=== PATIENT | male | born 1990 | race Two or more races ===

== ENCOUNTER 2019-01-26 12:08 | Emergency (ER) | payer SELFPAY ==
[~2019-01-26] VITALS: Ht 162.6 cm; Wt 56.7 kg
[2019-01-26 12:32] VITALS: BP 129/70
== END 2019-01-26 13:22 | disposition left against medical advice (07) ==
LOC: ER 12:08
DX: Z11.3 Encounter for screening for infections with a predominantly sexual mode of transmission (principal); Z53.21 Procedure and treatment not carried out due to patient leaving prior to being seen by health care provider